=== PATIENT | male | born 1990 | race American Indian/Alaskan Native ===

== ENCOUNTER 2020-01-23 02:09 | Emergency (ER) | payer SELFPAY ==
[2020-01-23 02:20] VITALS: BP 147/73
--- NOTE | 2020-01-23 03:09 | Emergency Department Report ---
- General Chief Complaint: Nosebleed Stated Complaint: NOSE BLEED/SINUSES Source: patient Mode of arrival: Ambulatory Limitations: No Limitations - History of Present Illness Initial Comments: Patient is a 30-year-old -[place] male with no past medical history who presents to the ED with complaint of acute onset persistent nasal and sinus congestion and frontal sinus pressure for the last 4 days. Patient also complains of acute onset nosebleed on the right nasal passages after blowing his nose several times about 3 hours ago. Patient states that the nosebleed has since stopped. Patient denies dizziness, syncope, cough, sore throat, fever, chills, nausea, vomiting, headache, chest pain or shortness of breath. Patient states that no one else at home is had similar symptoms. MD Complaint: rhinorrhea, nasal congestion, sinus pain, other (nosebleed) -: Sudden, hour(s) (3), days(s) (2) Severity: moderate Severity scale (0 -10): 4 Quality: dull, aching Consistency: intermittent Improves With: nothing Worsens With: nothing Associated Symptoms: denies other symptoms, rhinorrhea, nasal congestion, epistaxis. denies: fever, chills, myalgias, stiff neck, cough, chest pain, shortness of breath, nausea, vomiting, diarrhea, dysuria, rash, confusion, right sweats, weight loss, hoarseness, ear pain, other Treatments Prior to Arrival: none - Related Data Previous Rx's Medication Instructions Recorded Last Taken Type Cetirizine HCl [Zyrtec 10mg tab] 10 mg PO DAILY #30 tablet 01/23/20 Unknown Rx Fluticasone [Flonase] 1 spray NS QDAY #1 bottle 01/23/20 Unknown Rx Allergies Allergy/AdvReac Type Severity Reaction Status Date / Time No Known Allergies Allergy Unverified 01/23/20 02:22 ED Review of Systems ROS: Stated complaint: NOSE BLEED/SINUSES Other details as noted in HPI Constitutional: denies: chills, fever Eyes: denies: eye pain, eye discharge, vision change ENT: epistaxis (right sided), congestion. denies: ear pain, throat pain Respiratory: denies: cough, shortness of breath, wheezing Cardiovascular: denies: chest pain, palpitations Endocrine: no symptoms reported Gastrointestinal: denies: abdominal pain, nausea, diarrhea Genitourinary: denies: urgency, dysuria Musculoskeletal: denies: back pain, joint swelling, arthralgia Skin: denies: rash, lesions Neurological: denies: headache, weakness, paresthesias Psychiatric: denies: anxiety, depression Hematological/Lymphatic: denies: easy bleeding, easy bruising ED Past Medical Hx - Past Medical History Previous Medical History?: No - Surgical History Past Surgical History?: No - Social History Smoking Status: Never Smoker Substance Use Type: None - Medications Home Medications: Home Medications Medication Instructions Recorded Confirmed Last Taken Type Cetirizine HCl [Zyrtec 10mg tab] 10 mg PO DAILY #30 tablet 01/23/20 Unknown Rx Fluticasone [Flonase] 1 spray NS QDAY #1 bottle 01/23/20 Unknown Rx ED Physical Exam - General Limitations: No Limitations General appearance: alert, in no apparent distress - Head Head exam: Present: atraumatic, normocephalic, normal inspection - Eye Eye exam: Present: normal appearance, PERRL, EOMI Pupils: Present: normal accommodation - ENT ENT exam: Present: normal orophraynx, mucous membranes moist, TM's normal bilaterally, normal external ear exam, other (Grossly congested nasal passages, right-sided epistaxis resolved) - Neck Neck exam: Present: normal inspection, full ROM. Absent: tenderness - Respiratory Respiratory exam: Present: normal lung sounds bilaterally. Absent: respiratory distress, wheezes, rales, rhonchi, chest wall tenderness, accessory muscle use, decreased breath sounds, prolonged expiratory - Cardiovascular Cardiovascular Exam: Present: regular rate, normal rhythm, normal heart sounds. Absent: systolic murmur, diastolic murmur, rubs, gallop - GI/Abdominal GI/Abdominal exam: Present: soft, normal bowel sounds. Absent: tenderness, guarding, hyperactive bowel sounds, hypoactive bowel sounds, organomegaly - Extremities Exam Extremities exam: Present: normal inspection, full ROM, normal capillary refill - Back Exam Back exam: Present: normal inspection, full ROM. Absent: tenderness, CVA tenderness (R), muscle spasm, paraspinal tenderness - Neurological Exam Neurological exam: Present: alert, oriented X3, CN II-XII intact, normal gait, reflexes normal - Psychiatric Psychiatric exam: Present: normal affect, normal mood - Skin Skin exam: Present: warm, dry, intact, normal color. Absent: rash ED Course Vital Signs 01/23/20 02:18 Temperature 98.4 F Pulse Rate 88 Respiratory 18 Rate Blood Pressure 147/73 O2 Sat by Pulse 98 Oximetry ED Medical Decision Making - Medical Decision Making This is a 30-year-old male who presented to the ED with nasal and sinus congestion, frontal sinus pressure for 4 days and also acute onset intermittent right-sided epistaxis 3 hours ago after blowing his nose several times and which has since resolved upon arrival in the ED. In the ED, patient is alert and oriented x3 and is not in any distress with normal vital signs. Patient symptoms are likely due to acute upper respiratory infection that he has had for 4 days complicated by nosebleed which resulted after he blew his nose several times. Patient was discharged home and advised to follow-up with his primary care physician in 5 to 7 days for reevaluation and also advised not to blow his nose but to dab his nose if he is having any nasal congestion. Patient was advised to return to the ED immediately if symptoms get worse. - Differential Diagnosis URI; Sinusitis; Epistaxis Critical care attestation.: If time is entered above; I have spent that time in minutes in the direct care of this critically ill patient, excluding procedure time. ED Disposition Clinical Impression: Acute upper respiratory infection, Right-sided epistaxis Allergic rhinitis due to pollen Qualifiers: Allergic rhinitis seasonality: seasonal Qualified Code(s): J30.1 - Allergic rhinitis due to pollen Disposition: DC-01 TO HOME OR SELFCARE Is pt being admited?: No Does the pt Need Aspirin: No Condition: Stable Instructions: Epistaxis (ED), Upper Respiratory Infection (ED), Cold Symptoms (ED) Additional Instructions: Take medication with food, drink plenty of fluids and follow-up with your primary care physician in 5 to 7 days for reevaluation. Return to the ED immediately if symptoms get worse. Prescriptions: Fluticasone [Flonase] 1 spray NS QDAY #1 bottle Cetirizine HCl [Zyrtec 10mg tab] 10 mg PO DAILY #30 tablet Referrals: [facility] [Provider Group] - 3-5 Days Time of Disposition: 03:11 Print Language: IRISH
== END 2020-01-23 03:25 | disposition home or self-care (01) ==
LOC: ED 02:09
DX: J06.9 Acute upper respiratory infection, unspecified (principal); R04.0 Epistaxis; J30.1 Allergic rhinitis due to pollen; Z79.899 Other long term (current) drug therapy
CPT/HCPCS: 99281